=== PATIENT | male | born 1965 | race American Indian/Alaskan Native ===

== ENCOUNTER 2022-07-17 17:48 | Emergency (ER) | payer MEDICAID ==
[~2022-07-17] VITALS: Ht 180.3 cm; Wt 95.5 kg
[~2022-07-17 17:48] MED LIST: DIPH25CA51 PO; EPIN0.3P17 IM; GUAI120015 PO; HYDR-4383 PO
[2022-07-17] MEDS ORDERED: azithromycin 250mg tablet PO ONE (20:45)
[2022-07-17 20:57] VITALS: BP 124/89
[2022-07-17] MEDS ORDERED: BENZ-38 PO (20:59)
[2022-07-17] MEDS ORDERED: AZIT250T2 PO (20:59)
== END 2022-07-17 21:42 | disposition home or self-care (01) ==
LOC: ER 17:48
DX: J20.9 Acute bronchitis, unspecified (principal); J44.9 Chronic obstructive pulmonary disease, unspecified; G89.29 Other chronic pain; Z88.6 Allergy status to analgesic agent; Z79.899 Other long term (current) drug therapy
CPT/HCPCS: 71045; 99283